=== PATIENT | male | born 1985 | race Caucasian/White ===

== ENCOUNTER 2019-10-21 16:43 | Emergency (ER) | payer SELFPAY ==
[~2019-10-21] VITALS: Ht 170.2 cm; Wt 59.1 kg
[~2019-10-21 16:43] MED LIST: NOCURR
[2019-10-21] MEDS ORDERED: MAG HYDROX/AL HYDROX/SIMETH ES 30 ML SUSPENSION UDCUP PO ONE (17:45)
[2019-10-21] MEDS ORDERED: ONDANSETRON HCL 4 MG TABLET PO ONE (17:45)
[2019-10-21 18:03] LABS: BASOPHILS % (AUTO) 0.7 % (0.0-2.0); EOSINOPHILS % (AUTO) 0.3 % (1.0-6.0); HEMOGLOBIN 16.2 g/dL (13.5-17.5); LYMPHOCYTES # (AUTO) 0.7 K/uL (1.0-4.8); MEAN CORPUSCULAR HEMOGLOBIN 34.5 pg (26.0-34.0); MEAN CORPUSCULAR HGB CONC 33.9 G/dL (31.0-37.0); MEAN CORPUSCULAR VOLUME 102 fL (80-100); MONOCYTES # (AUTO) 0.7 K/uL (0.1-1.0); MONOCYTES % (AUTO) 8.4 % (2.0-9.0); NEUTROPHILS # (AUTO) 6.5 K/uL (1.8-7.7); NEUTROPHILS % (AUTO) 81.6 % (40.0-70.0); PLATELET COUNT (AUTO) 209 K/uL (150-450); RED BLOOD CELL COUNT(AUTO) 4.71 MIL/uL (4.50-5.90); RED CELL DISTRIBUTION WIDTH 13.7 % (11.5-14.5)
[2019-10-21 18:14] LABS: ANION GAP 16 mmol/L (8-16); CALCIUM, TOTAL 9.5 mg/dL (8.8-10.5); CARBON DIOXIDE 26 mmol/L (22-29); CHLORIDE 102 mmol/L (98-107); CREATININE 0.89 mg/dL (0.60-1.30); GLOMERULAR FILTR. RATE CALC > 60 mL/min (>60); GLUCOSE,RANDOM 91 mg/dL (70-110); POTASSIUM 4.3 mmol/L (3.5-5.1); SODIUM SERUM 144 mmol/L (136-145); UREA NITROGEN, BLOOD 10 mg/dL (7-18)
[2019-10-21 18:20] LABS: ALANINE AMINOTRANSFERASE 170 U/L (12-78); ALBUMIN 5.1 g/dL (3.4-5.0); ALKALINE PHOSPHATASE 100 U/L (46-116); ASPARTATE AMINOTRANSFERASE 122 U/L (15-37); BILIRUBIN,TOTAL 0.5 mg/dL (0.1-1.0); LIPASE 214 U/L (73-393); TOTAL PROTEIN, SERUM 8.7 g/dL (6.4-8.2)
[2019-10-21 18:49] VITALS: BP 154/78
== END 2019-10-21 19:19 | disposition home or self-care (01) ==
LOC: EMS 16:44
DX: K70.30 Alcoholic cirrhosis of liver without ascites (principal); K29.20 Alcoholic gastritis without bleeding; F10.129 Alcohol abuse with intoxication, unspecified; F12.90 Cannabis use, unspecified, uncomplicated; Y90.7 Blood alcohol level of 200-239 mg/100 ml
CPT/HCPCS: 36415; 80053; 83605; 83690; 85025; 99283; G0480; Q0162

== ENCOUNTER 2021-06-27 14:16 | Emergency (ER) | payer MEDICAID ==
[~2021-06-27] VITALS: Ht 172.7 cm; Wt 66.0 kg
[2021-06-27] MEDS ORDERED: ACETAMINOPHEN 500 MG TABLET PO ONE (14:45)
[2021-06-27] MEDS ORDERED: IBUPROFEN 600 MG TABLET PO ONE (14:45)
[2021-06-27] MEDS ORDERED: LIDOCAINE 1% 10 ML VIAL SQ ONE (15:30)
[2021-06-27 17:11] VITALS: BP 118/69
== END 2021-06-27 17:12 | disposition home or self-care (01) ==
LOC: EMS 14:16
DX: S52.501A Unspecified fracture of the lower end of right radius, initial encounter for closed fracture (principal); S52.601A Unspecified fracture of lower end of right ulna, initial encounter for closed fracture; W18.39XA Other fall on same level, initial encounter; Y93.89 Activity, other specified; Y92.89 Other specified places as the place of occurrence of the external cause; Y99.8 Other external cause status
CPT/HCPCS: 25605; 73110; 99284; J3490